=== PATIENT | male | born 2000 ===

== ENCOUNTER 2019-02-14 20:58 | Emergency (ER) | payer BC ==
--- NOTE | 2019-02-14 22:48 | ULT ---
TESTICULAR ULTRASOUND 02/14/19 HISTORY: Left testicular pain which started today. History of right sided hernia surgery in 2018. FINDINGS: The testicles demonstrate a symmetric and homogeneous echotexture bilaterally without evidence of a t esticular mass. Doppler evaluation with spectral analysis of each testicle demonstrates arterial flow bilaterally. Tiny subcentimeter anechoic structures are seen in each epididymal head likely related to tiny epidid ymal cysts. Tiny amount of fluid is seen adjacent each testicle likely physiologic. IMPRESSION: 1. Normal appearing bilateral testicles without evidence of a testicular mass. Arterial flow is documented in each testicle. 2. Tiny epididymal cysts bilaterally. POS: BUNNY
== END 2019-02-14 23:33 | disposition home or self-care (01) ==
LOC: ERS 20:58
DX: N50.812 Left testicular pain (principal)
CPT/HCPCS: 76870; 93976